=== PATIENT | male | born 1990 | race Caucasian/White ===

== ENCOUNTER 2019-12-27 16:06 | Emergency (ER) | payer MEDICAID, SELFPAY ==
[2019-12-27] VITALS (7 sets, daily range): BP systolic 100–120; BP diastolic 55–75; PULSE 59–82; RESP 16–18; TEMP 36.9; O2SAT 98–100; BMI 18.6
--- NOTE | 2019-12-27 18:07 | ED.DIZZY ---
HPI - Dizziness General Chief Complaint: Dizziness <Bettina Yu NP - Last Filed: 12/27/19 21:45> Stated Complaint: DIZZINESS DUE TO NEW MED <Bettina Yu NP - Last Filed: 12/27/19 21:45> Time Seen by Provider: 12/27/19 18:01 <Bettina Yu NP - Last Filed: 12/27/19 21:45> Source: patient <Bettina Yu NP - Last Filed: 12/27/19 21:45> Mode of arrival: ambulatory <Bettina Yu NP - Last Filed: 12/27/19 21:45> History of Present Illness HPI Narrative: patient presents with 1 day of dizziness after taking medications that were prescribed to him last night. <Bettina Yu NP - Last Filed: 12/27/19 21:45> MD elicited complaint: dizziness and lightheadedness <Bettina Yu NP - Last Filed: 12/27/19 21:45> Onset (ago): day(s) ( One day) <Bettina Yu NP - Last Filed: 12/27/19 21:45> Timing: gradual onset <Bettina Yu NP - Last Filed: 12/27/19 21:45> Severity: moderate <Bettina Yu NP - Last Filed: 12/27/19 21:45> Description: room spinning , lightheadedness and off-balance <Bettina Yu NP - Last Filed: 12/27/19 21:45> Context: change in medication <Bettina Yu NP - Last Filed: 12/27/19 21:45> History of similar symptoms: No <Bettina Yu NP - Last Filed: 12/27/19 21:45> Exacerbating factors: movement/ambulation <Bettina Yu NP - Last Filed: 12/27/19 21:45> Relieving factors: nothing <Bettina Yu NP - Last Filed: 12/27/19 21:45> Associated symptoms: nausea <Bettina Yu NP - Last Filed: 12/27/19 21:45> Related Data Allergies/Adverse Reactions: Allergies Allergy/AdvReac Type Severity Reaction Status Date / Time FRUIT Allergy Unknown HIVES, Uncoded 12/25/19 16:24 DIFFICULTY BREATHING <Bettina Yu NP - Last Filed: 12/27/19 21:45> Review of Systems Review of Systems: Yes all other systems are reviewed and are negative <Bettina Yu NP - Last Filed: 12/27/19 21:45> Constitutional: Constitutional: Reports no additional constitutional complaints and Denies headache(s) <Bettina Yu NP - Last Filed: 12/27/19 21:45> Eyes: Eyes: Reports no additional eye complaints <Bettina Yu NP - Last Filed: 12/27/19 21:45> ENT: Reports system reviewed and no additional complaints, except as documented, Reports Normal hearing present and Denies headache(s) <Bettina Yu NP - Last Filed: 12/27/19 21:45> Cardiovascular: Cardiovascular: Reports no additional cardiovascular complaints, Denies chest pain, Denies chest pain at rest, Denies diaphoresis, Denies syncope, Denies rapid heart rate, Denies dyspnea and Denies dyspnea on exertion <Bettina Yu NP - Last Filed: 12/27/19 21:45> Respiratory: Respiratory: Reports no additional respiratory complaints, Denies cough, Denies dyspnea, Denies dyspnea on exertion and Denies wheezing <Bettina Yu NP - Last Filed: 12/27/19 21:45> Gastrointestinal: Gastrointestinal: Reports no additional gastrointestinal complaints, Denies abdominal pain, Denies melena and Denies change in bowel habits <Bettina Yu NP - Last Filed: 12/27/19 21:45> Genitourinary: Genitourinary: Reports no additional male genitourinary complaints <Bettina Yu NP - Last Filed: 12/27/19 21:45> Musculoskeletal: Musculoskeletal: Reports no additional musculoskeletal complaints and Denies abnormal gait <Bettina Yu NP - Last Filed: 12/27/19 21:45> Integumentary/Breasts: Skin/Breast: Reports system reviewed and no additional complaints, except as docu <Bettina Yu NP - Last Filed: 12/27/19 21:45> Neurologic: Reports Normal hearing present, Denies Neuro-related abnormal movements, Denies Abnormal speech present, Denies abnormal gait, Denies behavioral changes, Denies syncope, Denies headache(s), Denies lack of coordination and Denies Other visual disturbances <Bettina Yu NP - Last Filed: 12/27/19 21:45> Psychiatric: Psychiatric: Reports no additional psychiatric complaints and Denies behavioral changes <Bettina Yu NP - Last Filed: 12/27/19 21:45> Endocrine: Endocrine: Reports no additional endocrine complaints <Bettina Yu NP - Last Filed: 12/27/19 21:45> Hematologic/Lymphatic: Hematologic/Lymphatic: Denies easy bleeding and Denies easy bruising <Bettina Yu NP - Last Filed: 12/27/19 21:45> Allergic/Immunologic: Allergic/Immunologic: Denies wheezing <Bettina Yu NP - Last Filed: 12/27/19 21:45> [facility] Past Medical History Attestation statement: The following information was validated with the patient. <Bettina Yu NP - Last Filed: 12/27/19 21:45> Medical History: Medical History Anxiety <Bettina Yu NP - Last Filed: 12/27/19 21:45> Social History Social History: Social History Alcohol intake: never Smoking Status: Former smoker Smoked in Last 30 Days: No Use of substances other than those prescribed or required for medical reasons: No Advance Directives: No Advance Directives Information Provided: Yes <Bettina Yu NP - Last Filed: 12/27/19 21:45> Physical Exam Vital Signs and I&O and Narrative: Vital Signs and I&O: Vital Signs Temp 98.5 F 12/27/19 16:33 Pulse 75 12/27/19 20:42 Resp 18 12/27/19 20:42 BP 100/55 L 12/27/19 20:42 Pulse Ox 99 12/27/19 20:42 Intake & Output 12/27/19 12/27/19 12/28/19 06:59 18:59 06:59 Intake Total 1000 / 1000 Balance 1000 / 1000 Weight 55.776 kg Intake: Intake, IV Amoun t 1000 / 1000 0.9 % Sodium C hloride 1,000 ml 1000 / 1000 @ 999 mls/hr I VCONT .Q1H1M [facility] Rx#:[id number] Body Mass Index 18.6 <Bettina Yu TIME ANALYSIS CLERK - Last Filed: 12/27/19 21:45> Vital Signs and I&O: Vital Signs Temp 98.5 F 12/27/19 16:33 Pulse 75 12/27/19 20:42 Resp 18 12/27/19 20:42 BP 100/55 L 12/27/19 20:42 Pulse Ox 99 12/27/19 20:42 Intake & Output 12/27/19 12/27/19 12/28/19 06:59 18:59 06:59 Intake Total 1000 / 1000 Balance 1000 / 1000 Weight 55.776 kg Intake: Intake, IV Amoun t 1000 / 1000 0.9 % Sodium C hloride 1,000 ml 1000 / 1000 @ 999 mls/hr I VCONT .Q1H1M [facility] Rx#:[id number] Body Mass Index 18.6 <Ulisses Quinonez DO - Last Filed: 12/28/19 02:06> Const: General: cooperative, healthy appearing and no acute distress <Bettina Yu TIME ANALYSIS CLERK - Last Filed: 12/27/19 21:45> Nutritional Appearance: thin <Bettina Yu TIME ANALYSIS CLERK - Last Filed: 12/27/19 21:45> Orientation/consciousness: patient oriented x3 <Bettina Yu TIME ANALYSIS CLERK - Last Filed: 12/27/19 21:45> Limitations: no limitations <Bettina Yu TIME ANALYSIS CLERK - Last Filed: 12/27/19 21:45> HENMT: Head: Yes normal to inspection and Yes normocephalic <Bettina Yu TIME ANALYSIS CLERK - Last Filed: 12/27/19 21:45> Ears: hearing grossly normal bilaterally and TM's normal bilaterally <Bettina Yu TIME ANALYSIS CLERK - Last Filed: 12/27/19 21:45> General nose exam: Normal external nose present <Bettina Yu TIME ANALYSIS CLERK - Last Filed: 12/27/19 21:45> Face and sinus: Yes normal facial exam <Bettina Yu TIME ANALYSIS CLERK - Last Filed: 12/27/19 21:45> Mouth: Normal oral and palatal mucosa present <Bettina Yu TIME ANALYSIS CLERK - Last Filed: 12/27/19 21:45> Eyes: General: appearance normal, both eyes and all related structures <Bettina Yu TIME ANALYSIS CLERK - Last Filed: 12/27/19 21:45> Pupils: Equal, round and reactive pupils present <Bettina Yu TIME ANALYSIS CLERK - Last Filed: 12/27/19 21:45> EOM: EOMs intact bilaterally <Bettina Yu TIME ANALYSIS CLERK - Last Filed: 12/27/19 21:45> Neck: Neck: Yes normal visual inspection <Bettina Yu TIME ANALYSIS CLERK - Last Filed: 12/27/19 21:45> Chest: Chest palpation & inspection: normal inspection of the chest and normal palpation of entire chest wall <Bettina Yu TIME ANALYSIS CLERK - Last Filed: 12/27/19 21:45> Resp: Effort & Inspection: normal respiratory effort <Bettina Yu TIME ANALYSIS CLERK - Last Filed: 12/27/19 21:45> Auscultation: clear to auscultation bilaterally <Bettina Yu TIME ANALYSIS CLERK - Last Filed: 12/27/19 21:45> Cardio: Rate: regular rate <Bettina Yu NP - Last Filed: 12/27/19 21:45> Rhythm: regular rhythm <Bettina Yu TIME ANALYSIS CLERK - Last Filed: 12/27/19 21:45> GI: Inspection: Yes normal to inspection <Bettina Yu TIME ANALYSIS CLERK - Last Filed: 12/27/19 21:45> Auscultation: normal bowel sounds <Bettina Yu TIME ANALYSIS CLERK - Last Filed: 12/27/19 21:45> Skin: General skin exam: no rashes or lesions noted <Bettina Yu TIME ANALYSIS CLERK - Last Filed: 12/27/19 21:45> Neuro: General: patient oriented x3 <Bettina Yu NP - Last Filed: 12/27/19 21:45> Cranial nerves: Yes CN's II-XII intact bilaterally, Yes Facial sensation intact/muscles of mastication intact, Yes Equal, round and reactive pupils present, Yes Bilaterally intact EOM present, Yes Nystagmus not present and Yes Normal hearing present <Bettina Yu NP - Last Filed: 12/27/19 21:45> Cognition (Neuro): normal cognition <Bettina Yu NP - Last Filed: 12/27/19 21:45> Speech: No Abnormal speech present <Bettina Yu NP - Last Filed: 12/27/19 21:45> Gait exam (Neuro): Normal gait present <Bettina Yu NP - Last Filed: 12/27/19 21:45> Motor exam (neuro): 5/5 motor strength present throughout <Bettina Yu NP - Last Filed: 12/27/19 21:45> Extrem: General: Yes normal to inspection <Bettina Yu NP - Last Filed: 12/27/19 21:45> Psych: Appearance: grossly normal <Bettina Yu NP - Last Filed: 12/27/19 21:45> Mental Status: mental status grossly normal <Bettina Yu NP - Last Filed: 12/27/19 21:45> Speech and movement: Normal speech and movement present <Bettina Yu NP - Last Filed: 12/27/19 21:45> Course Course Hospital Course: 29-year-old male presents with after taking medications prescribed to him on December 24. Was prescribed Flexeril 10 mg, Montezuma 5 mg/325 mg for a work related injury. He stated he took these medications last night before going to bed and woke up with significant dizziness. He does describe any other symptoms at this time. Plan of care is for CBC, Chem 7, urinalysis, and fluid resuscitation. Orthostatic vitals. <Bettina Yu NP - Last Filed: 12/27/19 21:45> Reevaluation(s) Reevaluation #1: Orthostatics are positive, will order 2nd L of normal saline. <Bettina Yu NP - Last Filed: 12/27/19 21:45> Time: 20:08 <Bettina Yu NP - Last Filed: 12/27/19 21:45> Reevaluation #2: Second L infusing. Patient states to feel much better, sitting in bed, playing on his phone. <Bettina Yu NP - Last Filed: 12/27/19 21:45> Reevaluation #3: patient states to feel well, patient was advised not to take medications that he took earlier due to the adverse reaction. He does understand that narcotics and cause dizziness and drowsiness When mixed with muscle relaxers. He did verbalize understanding. He will follow-up with primary care physician as needed. patient verbalized understanding of and agrees to plan of care to discharge home. <Bettina Yu NP - Last Filed: 12/27/19 21:45> MDM - Dizziness Medical Records Attestation: I reviewed the patient's medical records. <Bettina Yu NP - Last Filed: 12/27/19 21:45> Lab Data Attestation: I reviewed the patient's lab results. <Bettina Yu NP - Last Filed: 12/27/19 21:45> Result diagrams: : 12/27/19 19:11 12/27/19 19:11 <Bettina Yu NP - Last Filed: 12/27/19 21:45> Labs: Lab Results 12/27/19 12/27/19 12/27/19 Range/Units 19:11 19:11 19:11 WBC 8.9 (4.8-10.8) X10*3/uL RBC 4.42 L (4.60-5.80) X10*6/uL Hgb 13.7 L (14.0-18.0) g/dl Hct 40.9 L (42-52) % MCV 92.5 (80-98) fL MCH 31.0 (27.0-33.0) pg MCHC 33.5 (31.0-36.0) g/dl RDW 11.2 (11.0-16.0) % Plt Count 214 (160-400) X10*3/uL MPV 9.7 (9.4-12.4) fL Immature Gran % (Auto) 0.2 (0.0-0.4) % Neut % (Auto) 79.1 H (45-73) % Lymph % (Auto) 16.0 L (20-40) % Bowie % (Auto) 4.3 (2-11) % Eos % (Auto) 0.1 (0-4) % Baso % (Auto) 0.3 (0-2) % Neut # (Auto) 7.0 (2.0-8.3) X10*3/uL Lymph # (Auto) 1.4 (1.2-4.9) X10*3/uL Bowie # (Auto) 0.4 (0.1-1.2) X10*3/uL Eos # (Auto) 0.0 (0.0-0.4) X10*3/uL Baso # (Auto) 0.0 (0.0-0.2) X10*3/uL Abs Immat Gran (auto) 0.02 (0.00-0.03) X10*3/uL Absolute Nucleated RBC 0.000 (0.0-0.012) X10*3/uL Nucleated RBC % (auto) 0.0 (0.0-0.2) /100WBC Sodium 141 (135-145) mmol/L Potassium 3.8 (3.3-5.1) mmol/l Chloride 102 (96-108) mmol/L Carbon Dioxide 30 H (22-29) mmol/L Anion Gap 13 (12-20) BUN 11 (9-16) mg/dL Creatinine 0.95 (0.5-1.4) mg/dL Estim Creat Clear Calc 89.6 Estimated GFR > 60 Random Glucose 95 (60-115) mg/dL Calcium 9.5 (8.4-10.2) mg/dL Urine Color YELLOW Urine Appearance CLEAR Urine pH 6.5 (5.0-8.0) Ur Specific [place] 1.010 (1.005-1.025) Urine Protein NEG (NEG-TRACE) MG/DL Urine Glucose (UA) NEG (NEG) MG/DL Urine Ketones NEG (NEG) MG/DL Urine Blood NEG (NEG) Urine Nitrite NEG (NEG) Ur Leukocyte Esterase NEG (NEG) Urine Opiates Screen (Not Detect) Ur Barbiturates Screen (Not Detect) Ur Phencyclidine Scrn (Not Detect) Ur Amphetamines Screen (Not Detect) U Benzodiazepines Scrn (Not Detect) Urine Cocaine Screen (Not Detect) U Marijuana (THC) Screen (Not Detect) 12/27/19 Range/Units 19:11 WBC (4.8-10.8) X10*3/uL RBC (4.60-5.80) X10*6/uL Hgb (14.0-18.0) g/dl Hct (42-52) % MCV (80-98) fL MCH (27.0-33.0) pg MCHC (31.0-36.0) g/dl RDW (11.0-16.0) % Plt Count (160-400) X10*3/uL MPV (9.4-12.4) fL Immature Gran % (Auto) (0.0-0.4) % Neut % (Auto) (45-73) % Lymph % (Auto) (20-40) % Bowie % (Auto) (2-11) % Eos % (Auto) (0-4) % Baso % (Auto) (0-2) % Neut # (Auto) (2.0-8.3) X10*3/uL Lymph # (Auto) (1.2-4.9) X10*3/uL Bowie # (Auto) (0.1-1.2) X10*3/uL Eos # (Auto) (0.0-0.4) X10*3/uL Baso # (Auto) (0.0-0.2) X10*3/uL Abs Immat Gran (auto) (0.00-0.03) X10*3/uL Absolute Nucleated RBC (0.0-0.012) X10*3/uL Nucleated RBC % (auto) (0.0-0.2) /100WBC Sodium (135-145) mmol/L Potassium (3.3-5.1) mmol/l Chloride (96-108) mmol/L Carbon Dioxide (22-29) mmol/L Anion Gap (12-20) BUN (9-16) mg/dL Creatinine (0.5-1.4) mg/dL Estim Creat Clear Calc Estimated GFR Random Glucose (60-115) mg/dL Calcium (8.4-10.2) mg/dL Urine Color Urine Appearance Urine pH (5.0-8.0) Ur Specific [place] (1.005-1.025) Urine Protein (NEG-TRACE) MG/DL Urine Glucose (UA) (NEG) MG/DL Urine Ketones (NEG) MG/DL Urine Blood (NEG) Urine Nitrite (NEG) Ur Leukocyte Esterase (NEG) Urine Opiates Screen Not Detected (Not Detect) Ur Barbiturates Screen Not Detected (Not Detect) Ur Phencyclidine Scrn Not Detected (Not Detect) Ur Amphetamines Screen Not Detected (Not Detect) U Benzodiazepines Scrn Not Detected (Not Detect) Urine Cocaine Screen Not Detected (Not Detect) U Marijuana (THC) Screen Not Detected (Not Detect) <Bettina Yu NP - Last Filed: 12/27/19 21:45> Lab Results 12/27/19 12/27/19 12/27/19 Range/Units 19:11 19:11 19:11 WBC 8.9 (4.8-10.8) X10*3/uL RBC 4.42 L (4.60-5.80) X10*6/uL Hgb 13.7 L (14.0-18.0) g/dl Hct 40.9 L (42-52) % MCV 92.5 (80-98) fL MCH 31.0 (27.0-33.0) pg MCHC 33.5 (31.0-36.0) g/dl RDW 11.2 (11.0-16.0) % Plt Count 214 (160-400) X10*3/uL MPV 9.7 (9.4-12.4) fL Immature Gran % (Auto) 0.2 (0.0-0.4) % Neut % (Auto) 79.1 H (45-73) % Lymph % (Auto) 16.0 L (20-40) % Bowie % (Auto) 4.3 (2-11) % Eos % (Auto) 0.1 (0-4) % Baso % (Auto) 0.3 (0-2) % Neut # (Auto) 7.0 (2.0-8.3) X10*3/uL Lymph # (Auto) 1.4 (1.2-4.9) X10*3/uL [place]ie # (Auto) 0.4 (0.1-1.2) X10*3/uL Eos # (Auto) 0.0 (0.0-0.4) X10*3/uL Baso # (Auto) 0.0 (0.0-0.2) X10*3/uL Abs Immat Gran (auto) 0.02 (0.00-0.03) X10*3/uL Absolute Nucleated RBC 0.000 (0.0-0.012) X10*3/uL Nucleated RBC % (auto) 0.0 (0.0-0.2) /100WBC Sodium 141 (135-145) mmol/L Potassium 3.8 (3.3-5.1) mmol/l Chloride 102 (96-108) mmol/L Carbon Dioxide 30 H (22-29) mmol/L Anion Gap 13 (12-20) BUN 11 (9-16) mg/dL Creatinine 0.95 (0.5-1.4) mg/dL Estim Creat Clear Calc 89.6 Estimated GFR > 60 Random Glucose 95 (60-115) mg/dL Calcium 9.5 (8.4-10.2) mg/dL Urine Color YELLOW Urine Appearance CLEAR Urine pH 6.5 (5.0-8.0) Ur Specific [place] 1.010 (1.005-1.025) Urine Protein NEG (NEG-TRACE) MG/DL Urine Glucose (UA) NEG (NEG) MG/DL Urine Ketones NEG (NEG) MG/DL Urine Blood NEG (NEG) Urine Nitrite NEG (NEG) Ur Leukocyte Esterase NEG (NEG) Urine Opiates Screen (Not Detect) Ur Barbiturates Screen (Not Detect) Ur Phencyclidine Scrn (Not Detect) Ur Amphetamines Screen (Not Detect) U Benzodiazepines Scrn (Not Detect) Urine Cocaine Screen (Not Detect) U Marijuana (THC) Screen (Not Detect) 12/27/19 Range/Units 19:11 WBC (4.8-10.8) X10*3/uL RBC (4.60-5.80) X10*6/uL Hgb (14.0-18.0) g/dl Hct (42-52) % MCV (80-98) fL MCH (27.0-33.0) pg MCHC (31.0-36.0) g/dl RDW (11.0-16.0) % Plt Count (160-400) X10*3/uL MPV (9.4-12.4) fL Immature Gran % (Auto) (0.0-0.4) % Neut % (Auto) (45-73) % Lymph % (Auto) (20-40) % [place] % (Auto) (2-11) % Eos % (Auto) (0-4) % Baso % (Auto) (0-2) % Neut # (Auto) (2.0-8.3) X10*3/uL Lymph # (Auto) (1.2-4.9) X10*3/uL [place]ie # (Auto) (0.1-1.2) X10*3/uL Eos # (Auto) (0.0-0.4) X10*3/uL Baso # (Auto) (0.0-0.2) X10*3/uL Abs Immat Gran (auto) (0.00-0.03) X10*3/uL Absolute Nucleated RBC (0.0-0.012) X10*3/uL Nucleated RBC % (auto) (0.0-0.2) /100WBC Sodium (135-145) mmol/L Potassium (3.3-5.1) mmol/l Chloride (96-108) mmol/L Carbon Dioxide (22-29) mmol/L Anion Gap (12-20) BUN (9-16) mg/dL Creatinine (0.5-1.4) mg/dL Estim Creat Clear Calc Estimated GFR Random Glucose (60-115) mg/dL Calcium (8.4-10.2) mg/dL Urine Color Urine Appearance Urine pH (5.0-8.0) Ur Specific [place] (1.005-1.025) Urine Protein (NEG-TRACE) MG/DL Urine Glucose (UA) (NEG) MG/DL Urine Ketones (NEG) MG/DL Urine Blood (NEG) Urine Nitrite (NEG) Ur Leukocyte Esterase (NEG) Urine Opiates Screen Not Detected (Not Detect) Ur Barbiturates Screen Not Detected (Not Detect) Ur Phencyclidine Scrn Not Detected (Not Detect) Ur Amphetamines Screen Not Detected (Not Detect) U Benzodiazepines Scrn Not Detected (Not Detect) Urine Cocaine Screen Not Detected (Not Detect) U Marijuana (THC) Screen Not Detected (Not Detect) <Ulisses Quinonez DO - Last Filed: 12/28/19 02:06> Discharge Plan Discharge Clinical Impression: Orthostatic hypotension, Adverse reaction to drug <Bettina Yu NP - Last Filed: 12/27/19 21:45> Patient Disposition: Home, Self-Care <Bettina Yu NP - Last Filed: 12/27/19 21:45> Instructions: Hypotension (ED), Adverse Drug Reaction (ED) <Bettina Yu NP - Last Filed: 12/27/19 21:45> Additional Instructions: please stop taking the medications that were prescribed to you as they are causing an adverse reaction. Please drink plenty of fluids. Follow-up with primary care provider in 3-5 days. Return to the emergency department for any new, concerning, or worsening symptoms. <Bettina Yu NP - Last Filed: 12/27/19 21:45> Interventions: ED Discharge Assessment Last Done: 12/27/19 21:21 <Bettina Yu NP - Last Filed: 12/27/19 21:45> Discharge Date/Time: 12/27/19 21:30 <Bettina Yu NP - Last Filed: 12/27/19 21:45>
[2019-12-27 19:16] LABS: MANUAL DIFF FLAG NO
[2019-12-27] MEDS: 0.9 % Sodium Chloride 1,000 ML 999 ML IVCONT ×2 (19:16→20:42)
[2019-12-27 19:19] LABS: Basophils Percent Auto 0.3 % (0-2); Eosinophils Percent Auto 0.1 % (0-4); Hematocrit 40.9 % (42-52); Hemoglobin 13.7 g/dl (14.0-18.0); Imm Gran Abs Auto 0.02 X10*3/uL (0.00-0.03); Imm Gran Pct Auto 0.2 % (0.0-0.4); Lymphocytes Absolute Auto 1.4 X10*3/uL (1.2-4.9); Mean Corpuscular HGB Conc 33.5 g/dl (31.0-36.0); Mean Corpuscular Volume 92.5 fL (80-98); Mean Platelet Volume 9.7 fL (9.4-12.4); Monocytes Absolute Auto 0.4 X10*3/uL (0.1-1.2); Monocytes Percent Auto 4.3 % (2-11); Neutrophils Percent Auto 79.1 % (45-73); Platelet Count 214 X10*3/uL (160-400); Red Blood Count 4.42 X10*6/uL (4.60-5.80); Red Cell Distribution Width 11.2 % (11.0-16.0); White Blood Count 8.9 X10*3/uL (4.8-10.8)
[2019-12-27 19:21] LABS: Glucose Urine UA NEG (NEG); Leukocyte Esterase Urine NEG (NEG); Nitrite Urine NEG (NEG); PH 6.5 (5.0-8.0); Urine Blood NEG (NEG); Urine Ketones NEG (NEG); Urine Protein NEG (NEG-TRACE)
[2019-12-27 19:22] LABS: Appearance Urine CLEAR; Color Urine YELLOW
[2019-12-27 19:42] LABS: Anion Gap 13 (12-20); Blood Urea Nitrogen 11 mg/dL (9-16); Calcium 9.5 mg/dL (8.4-10.2); Carbon Dioxide 30 mmol/L (22-29); Chloride 102 mmol/L (96-108); Creatinine Clr Calc Pharmacy 89.6; Estimated Glomerular Filt Rate > 60; Glucose Random 95 mg/dL (60-115); Potassium 3.8 mmol/l (3.3-5.1); Sodium 141 mmol/L (135-145)
[2019-12-27 19:52] LABS: Amphetamine Screen Urine Not Detected (Not Detect); Barbiturates, Urine Not Detected (Not Detect); Cannabinoid Screen Urine Not Detected (Not Detect); Cocaine Screen Urine Not Detected (Not Detect); Opiate Screen Urine Not Detected (Not Detect); Phencyclidine Screen Urine Not Detected (Not Detect)
[2019-12-27 20:01] LABS: Benzodiazepines Screen Urine Not Detected (Not Detect)
== END 2019-12-27 21:30 | disposition home or self-care (01) ==
PROVIDERS: Nurse Practitioner Family; Emergency Provider Emergency Medicine; PCP Student in an Organized Health Care Education/Training Program
DX: I95.2 Hypotension due to drugs (principal); T48.1X5A Adverse effect of skeletal muscle relaxants [neuromuscular blocking agents], initial encounter; Y92.019 Unspecified place in single-family (private) house as the place of occurrence of the external cause
CPT/HCPCS: 36415; 80048; 80307; 81003; 85025; 96360; 96361; 99284

== ENCOUNTER 2020-03-02 17:52 | Emergency (ER) | payer MEDICAID, SELFPAY ==
--- NOTE | 2020-03-02 08:37 | ECG_ITS ---
Test Reason : UNK Blood Pressure : / mmHG Vent. Rate : 063 BPM Atrial Rate : 063 BPM P-R Int : 116 ms QRS Dur : 082 ms QT Int : 360 ms P-R-T Axes : -07 070 067 degrees QTc Int : 368 ms Normal sinus rhythm Normal ECG When compared with ECG of 13-MAY-2019 17:40, Premature ventricular complexes are no longer Present Referred By: Freddie Anders Electronically Signed By:RAFI RUSSELL
[2020-03-02 18:00] VITALS: BP 116/71; PULSE 78; RESP 16; TEMP 36.7; O2SAT 98; BMI 18.4
[2020-03-02 20:32] VITALS: BP 99/61; PULSE 58; RESP 18; TEMP 36.7; O2SAT 97
--- NOTE | 2020-03-02 20:42 | ED.ABDPAIN ---
HPI - Abdominal Pain General Chief Complaint: Abdominal Pain Stated Complaint: Acid reflux Time Seen by Provider: 03/02/20 21:43 Source: patient Mode of arrival: ambulatory Limitations: no limitations History of Present Illness HPI narrative: 29-year-old male with history of GERD presents with esophageal burning consistent with prior episodes of GERD. He states that he presents because pain has not stopped after taking omeprazole. Usually his heartburn stops within an hour taking his medications. He does not report any other symptoms. MD elicited complaint: abdominal pain Pertinent past history: other (gerd) Onset (ago): hour(s) (3) Pain Consistency: constant Location: epigastric Severity: mild Quality: burning Radiation: none Migration to: no migration Exacerbating factors: eating Relieving factors: nothing Associated symptoms: denies other symptoms Treatments prior to arrival: antacids Related Data Allergies Allergy/AdvReac Type Severity Reaction Status Date / Time FRUIT Allergy Unknown HIVES, Uncoded 12/25/19 16:24 DIFFICULTY BREATHING Review of Systems Review of Systems Constitutional: No Fever, No Chills ENT/Mouth: No Ear Pain, No Hoarseness, No sore throat Eyes: No Eye Pain, No Swelling, No Redness, No Foreign Body Cardiovascular: No Chest Pain, No SOB Respiratory: No Cough, No Dyspnea Gastrointestinal: Positive heartburn, No Nausea, No Vomiting, No Diarrhea, No abdominal Pain Genitourinary: No Dysuria, No Hematuria Musculoskeletal: no joint pain, No Myalgias, No Joint Swelling Skin: No Skin lacerations, No rash Neuro: No Weakness, No Numbness, No Paresthesias, No Loss of Consciousness, No Dizziness, No Headache Psych: No Anxiety/Panic, No Depression Heme/Lymph: no easy bruising, no Lymphadenopathy Endocrine: No Polyuria, No Polydipsia Yes all other systems are reviewed and are negative Physical Exam Vital Signs: Vital Signs: Last Vital Signs Temp 98.0 F 03/02/20 20:32 Pulse 58 03/02/20 20:32 Resp 18 03/02/20 20:32 BP 99/61 03/02/20 20:32 Pulse Ox 97 03/02/20 20:32 Body Mass Index 18.4 Appearance: Alert. Oriented X3. No acute distress. thin body habitus Eyes: Pupils equal, round and reactive to light. ENT: Pharynx normal. Neck: Normal inspection. Neck supple. CVS: Normal heart rate and rhythm. Pulses normal. Respiratory: No respiratory distress. Breath sounds normal. Abdomen: Soft and nontender. Skin: Skin warm and dry. Normal skin color. Normal skin turgor. Extremities: No lower extremity edema. Neuro: No motor deficit. No sensory deficit. Course Course Course Narrative: 29-year-old male with GERD presents with heartburn-like symptoms after taking his medications. He is very thin, states that he eats all the time, he is always hungry and always thirsty. Will order chest x-ray and labs. we will resuscitate with a L of fluid As he does look dry. Chest x-rays negative for acute findings requiring emergent intervention, lab values show an elevated glucose of 160. based on his description of symptoms I feel that this could possibly be a type 1 diabetes. Detailed instructions about diabetes, glucose monitoring, and need to follow-up with primary care in the next 2-3 days. This [employer] MANAGER and RN spent 35 minutes each speaking to the patient regarding diabetes and need for further follow-up. Glucometer called in to his pharmacy of choice. Patient verbalized understanding of and agrees to plan of care to discharge home. MDM - Abdominal Pain MDM Narrative Medical decision making narrative: GERD Differential Diagnosis Differential diagnosis: Likely gastritis and peptic ulcer disease Lab Data Attestation: I reviewed the patient's lab results. Result diagrams: 03/02/20 20:38 03/02/20 20:38 Labs: Lab Results 03/02/20 03/02/20 12 Range/Units 20:38 20:38 20:38 WBC 5.6 (4.8-10.8) X10*3/uL RBC 4.18 L (4.60-5.80) X10*6/uL Hgb 12.7 L (14.0-18.0) g/dl Hct 38.3 L (42-52) % MCV 91.6 (80-98) fL MCH 30.4 (27.0-33.0) pg MCHC 33.2 (31.0-36.0) g/dl RDW 11.5 (11.0-16.0) % Plt Count 206 (160-400) X10*3/uL MPV 9.8 (9.4-12.4) fL Immature Gran % (Auto) 0.4 (0.0-0.4) % Neut % (Auto) 54.2 (45-73) % Lymph % (Auto) 35.9 (20-40) % [place] % (Auto) 7.9 (2-11) % Eos % (Auto) 1.1 (0-4) % Baso % (Auto) 0.5 (0-2) % Lymph # (Auto) 2.0 (1.2-4.9) X10*3/uL [place] # (Auto) 0.4 (0.1-1.2) X10*3/uL Eos # (Auto) 0.1 (0.0-0.4) X10*3/uL Baso # (Auto) 0.0 (0.0-0.2) X10*3/uL Abs Immat Gran (auto) 0.02 (0.00-0.03) X10*3/uL Absolute Neuts (auto) 3.0 (2.0-8.3) X10*3/uL Absolute Nucleated RBC 0.000 (0.0-0.012) X10*3/uL Nucleated RBC % (auto) 0.0 (0.0-0.2) /100WBC Hold Purple Top Hold Blue Top SEE NOTE Sodium 137 (135-145) mmol/L Potassium 3.5 (3.3-5.1) mmol/l Chloride 100 (96-108) mmol/L Carbon Dioxide 28 (22-29) mmol/L Anion Gap 13 (12-20) BUN 12 (9-16) mg/dL Creatinine 0.82 (0.5-1.4) mg/dL Estim Creat Clear Calc 105.6 Estimated GFR > 60 Random Glucose 160 H D (60-115) mg/dL Calcium 9.1 (8.4-10.2) mg/dL Total Bilirubin 0.5 (0.0-1.0) mg/dL AST 18 (5-37) U/L ALT 10 (0-40) U/L Alkaline Phosphatase 62 (39-117) U/L Total Protein 7.5 (6.5-8.0) g/dL Albumin 4.8 (3.5-5.0) g/dL Lipase 30 (8-78) U/L 03/02/20 Range/Units 20:38 WBC (4.8-10.8) X10*3/uL RBC (4.60-5.80) X10*6/uL Hgb (14.0-18.0) g/dl Hct (42-52) % MCV (80-98) fL MCH (27.0-33.0) pg MCHC (31.0-36.0) g/dl RDW (11.0-16.0) % Plt Count (160-400) X10*3/uL MPV (9.4-12.4) fL Immature Gran % (Auto) (0.0-0.4) % Neut % (Auto) (45-73) % Lymph % (Auto) (20-40) % [place] % (Auto) (2-11) % Eos % (Auto) (0-4) % Baso % (Auto) (0-2) % Lymph # (Auto) (1.2-4.9) X10*3/uL [place] # (Auto) (0.1-1.2) X10*3/uL Eos # (Auto) (0.0-0.4) X10*3/uL Baso # (Auto) (0.0-0.2) X10*3/uL Abs Immat Gran (auto) (0.00-0.03) X10*3/uL Absolute Neuts (auto) (2.0-8.3) X10*3/uL Absolute Nucleated RBC (0.0-0.012) X10*3/uL Nucleated RBC % (auto) (0.0-0.2) /100WBC Hold Purple Top SEE NOTE Hold Blue Top Sodium (135-145) mmol/L Potassium (3.3-5.1) mmol/l Chloride (96-108) mmol/L Carbon Dioxide (22-29) mmol/L Anion Gap (12-20) BUN (9-16) mg/dL Creatinine (0.5-1.4) mg/dL Estim Creat Clear Calc Estimated GFR Random Glucose (60-115) mg/dL Calcium (8.4-10.2) mg/dL Total Bilirubin (0.0-1.0) mg/dL AST (5-37) U/L ALT (0-40) U/L Alkaline Phosphatase (39-117) U/L Total Protein (6.5-8.0) g/dL Albumin (3.5-5.0) g/dL Lipase (8-78) U/L Imaging Data Chest x-ray: Attestation: I personally reviewed and interpreted this imaging study as follows: Radiologist's impression: EXAMINATION: XR CHEST CLINICAL INFORMATION: GI pain COMPARISON: 05/13/2019 TECHNIQUE: 2 views of the chest were obtained. FINDINGS: No significant abnormality is noted involving the heart, lungs, mediastinum, bony thorax or soft tissues. Minimal pectus excavatum is noted. XR/XR chest 2V IMPRESSION: Unremarkable examination. Discharge Plan Discharge Clinical Impression: Diabetes Qualifiers: Diabetes mellitus type: type 1 Diabetes mellitus complication status: without complication Qualified Code(s): E10.9 - Type 1 diabetes mellitus without complications Patient Disposition: Home, Self-Care Instructions: Diabetes Insipidus (ED), Type 1 Diabetes in Adults: New Diagnosis (ED), Diabetes and Your Skin (ED), Diabetes and Your Mouth (ED), Diabetes and Nutrition (ED), Diabetes and Exercise (ED), Diabetes Type 1: Management (ED) Additional Instructions: you were evaluated for epigastric pain suspected to be Heartburn. Your glucose was 160, you describe symptoms consistent with diabetes type 1. We ordered a glucometer for you. Please pick it up at the pharmacy today. Monitor blood sugars daily. You must follow-up with the primary care physician in the next 2-3 days as you need careful monitoring for this diagnosis. Thank you for choosing this emergency department for evaluation. Please follow-up with primary care physician as needed. Return to the emergency department for any new, concerning, or worsening symptoms. Stand Alone Forms: Work/School Release Interventions: ED Discharge Assessment Last Done: 03/02/20 22:42 Discharge Date/Time: 03/02/20 22:58 Print Language: [place]ican [facility] Past Medical History Medical History Anxiety Social History Social History Alcohol intake: current Alcohol intake frequency: holidays/special occasions only Smoking Status: Current every day smoker Smoked in Last 30 Days: Yes Use of substances other than those prescribed or required for medical reasons: No Advance Directives: No Advance Directives Information Provided: Yes
[2020-03-02 20:45] LABS: MANUAL DIFF FLAG NO
[2020-03-02 20:49] LABS: Basophils Percent Auto 0.5 % (0-2); Eosinophils Absolute Auto 0.1 X10*3/uL (0.0-0.4); Eosinophils Percent Auto 1.1 % (0-4); Hematocrit 38.3 % (42-52); Hemoglobin 12.7 g/dl (14.0-18.0); Imm Gran Abs Auto 0.02 X10*3/uL (0.00-0.03); Imm Gran Pct Auto 0.4 % (0.0-0.4); Lymphocytes Percent Auto 35.9 % (20-40); Mean Corpuscular HGB Conc 33.2 g/dl (31.0-36.0); Mean Corpuscular Hemoglobin 30.4 pg (27.0-33.0); Mean Corpuscular Volume 91.6 fL (80-98); Mean Platelet Volume 9.8 fL (9.4-12.4); Monocytes Absolute Auto 0.4 X10*3/uL (0.1-1.2); Monocytes Percent Auto 7.9 % (2-11); Neutrophils Percent Auto 54.2 % (45-73); Platelet Count 206 X10*3/uL (160-400); Red Blood Count 4.18 X10*6/uL (4.60-5.80); Red Cell Distribution Width 11.5 % (11.0-16.0); White Blood Count 5.6 X10*3/uL (4.8-10.8)
[2020-03-02] MEDS: Magnesium Hydrox/Alum Hydrox 30 ML ORAL.SUSP PO (21:18)
[2020-03-02] MEDS: Lidocaine HCl Viscous 2 % 15 ML SOLUTION MUCOUS MEM (21:18)
[2020-03-02] MEDS: PHENobarb/Hyoscy/Atropine/Scop 10 ML ELIXIR PO (21:19)
[2020-03-02 21:36] LABS: Alanine Aminotransferase 10 U/L (0-40); Albumin Level 4.8 g/dL (3.5-5.0); Alkaline Phosphatase 62 U/L (39-117); Anion Gap 13 (12-20); Aspartate Amino Transferase 18 U/L (5-37); Bilirubin Total 0.5 mg/dL (0.0-1.0); Blood Urea Nitrogen 12 mg/dL (9-16); Calcium 9.1 mg/dL (8.4-10.2); Carbon Dioxide 28 mmol/L (22-29); Chloride 100 mmol/L (96-108); Creatinine Clr Calc Pharmacy 105.6; Estimated Glomerular Filt Rate > 60; Glucose Random 160 mg/dL (60-115); Lipase 30 U/L (8-78); Potassium 3.5 mmol/l (3.3-5.1); Sodium 137 mmol/L (135-145); Total Protein 7.5 g/dL (6.5-8.0)
== END 2020-03-02 22:58 | disposition home or self-care (01) ==
PROVIDERS: Emergency Provider Internal Medicine; PCP Student in an Organized Health Care Education/Training Program
DX: E10.9 Type 1 diabetes mellitus without complications (principal); R10.13 Epigastric pain; K21.9 Gastro-esophageal reflux disease without esophagitis; F17.200 Nicotine dependence, unspecified, uncomplicated
CPT/HCPCS: 36415; 71046; 80053; 83690; 85025; 93005; 99284

== ENCOUNTER 2020-06-21 12:31 | Emergency (ER) | payer MEDICAID, SELFPAY ==
[2020-06-21 12:43] VITALS: BP 122/77; PULSE 82; RESP 16; TEMP 37; O2SAT 98; BMI 20.3
[2020-06-21 16:40] VITALS: BP 118/71; PULSE 64; RESP 16; TEMP 36.8; O2SAT 99
== END 2020-06-21 17:49 | disposition left against medical advice (07) ==
PROVIDERS: Emergency Provider Emergency Medicine; PCP Student in an Organized Health Care Education/Training Program
DX: R10.9 Unspecified abdominal pain (principal); F41.9 Anxiety disorder, unspecified
CPT/HCPCS: 99283

== ENCOUNTER 2020-06-25 12:01 | Outpatient (REF) | payer MEDICAID, SELFPAY ==
--- NOTE | ~2020-06-25 | XR_ITS ---
EXAMINATION: XR LUMBOSACRAL SPINE WITH OBLIQUES CLINICAL INFORMATION: Lower back pain COMPARISON: 12/25/2019 TECHNIQUE: AP, both oblique, and lateral views of the lumbar spine. Lateral view of the lumbosacral junction. FINDINGS: There is no fracture or subluxation. Vertebral body height and alignment is maintained. Disc spaces are maintained. The sacroiliac joints are symmetric. The visualized sacrum is intact. The bowel gas pattern is unremarkable. XR/XR lumbar spine 4V min IMPRESSION: Normal appearance of the lumbosacral spine.
== END 2020-06-25 12:02 | disposition home or self-care (01) ==
LOC: HO.XRAY 12:01
PROVIDERS: PCP Student in an Organized Health Care Education/Training Program; Visit Provider Emergency Medicine
DX: M54.5 Low back pain (principal)
CPT/HCPCS: 72110

== ENCOUNTER 2020-11-25 16:25 | Emergency (ER) | payer MEDICAID, SELFPAY ==
[2020-11-25 16:32] VITALS: BP 118/72; PULSE 73; RESP 16; TEMP 35.9; O2SAT 98; BMI 18.6
[2020-11-25 17:24] LABS: COVID-19 Test Negative (Negative)
--- NOTE | 2020-11-25 17:59 | ED.GENADULT ---
HPI - General Adult General Chief complaint: Upper Respiratory Symptoms Stated complaint: sore throat Time Seen by Provider: 11/25/20 16:48 History of Present Illness HPI narrative: Patient complains of sore throat for 3 weeks with some discomfort with swallowing and some pain in the back of his throat, he has no difficulty swallowing no difficulty breathing denies any swelling has not felt any lumps Related Data Previous Rx's Medication Instructions Recorded acetaminophen 500 mg tablet 1,000 mg PO QID PRN #30 tab 11/25/20 ibuprofen 600 mg tablet 600 mg PO Q6H PRN #20 tab 11/25/20 loratadine 10 mg tablet (Claritin) 10 mg PO DAILY PRN #10 tab 11/25/20 prednisone 20 mg tablet 60 mg PO DAILY 3 Days #9 tab 11/25/20 Allergies Allergy/AdvReac Type Severity Reaction Status Date / Time FRUIT Allergy Unknown HIVES, Uncoded 12/25/19 16:24 DIFFICULTY BREATHING PMFSH Past Medical History Medical History Anxiety Social History Social History Alcohol intake: current Alcohol intake frequency: holidays/special occasions only Advance Directives: No Advance Directives Information Provided: No Physical Exam Vital Signs: Vital Signs: Last Vital Signs Temp 96.7 F L 11/25/20 16:32 Pulse 73 11/25/20 16:32 Resp 16 11/25/20 16:32 BP 118/72 11/25/20 16:32 Pulse Ox 98 11/25/20 16:32 Body Mass Index 18.6 Course Course Course Narrative: Patient with normal exam of the throat and neck is treated with a trial of steroids, antihistamine and Motrin and will follow with primary doctor for further evaluation and possible referral to a specialist if pain continues At this time is well-appearing and swallows easily and had a normal exam of the throat Medical Decision Making Lab Data Labs: Lab Results 11/25/20 11/25/20 Range/Units 16:59 16:59 COVID-19 (KHADAR) Negative (Negative) COVID-19 Clin Com See Note S. pyogenes GrpA LIANE Negative (Negative) Discharge Plan Discharge Clinical Impression: Pharyngitis Patient Disposition: Home, Self-Care Additional Instructions: Your strep test and COVID tests were negative Pain may be from a viral inflammation, it may be from allergies but we are not sure physical exam was normal If pain continues follow with primary doctor pain in some cases if need be will refer you to a specialist for further evaluation Return any time any changed or worse condition Prescriptions: New prednisone 20 mg tablet 60 mg PO DAILY 3 Days Qty: 9 RF: 0 ibuprofen 600 mg tablet 600 mg PO Q6H PRN (Reason: pain) Qty: 20 RF: 0 acetaminophen 500 mg tablet 1,000 mg PO QID PRN (Reason: pain) Qty: 30 RF: 0 loratadine [Claritin] 10 mg tablet 10 mg PO DAILY PRN (Reason: allergy symptoms) Qty: 10 RF: 0
[2020-11-25 18:15] LABS: IDNOW Serial# 9DD0AD1C; Strep A Nucleic Acid Negative (Negative)
[2020-11-25] MEDS: Ibuprofen 400 MG TABLET PO (18:47)
[2020-11-25] MEDS: predniSONE 20 MG TABLET 60 MG PO (18:47)
[2020-11-25] MEDS: Loratadine 10 MG TABLET PO (18:48)
== END 2020-11-25 18:53 | disposition home or self-care (01) ==
PROVIDERS: Physician Assistant Medical; Emergency Provider Internal Medicine; PCP Student in an Organized Health Care Education/Training Program
DX: J02.9 Acute pharyngitis, unspecified (principal); Z20.822 Contact with and (suspected) exposure to COVID-19
CPT/HCPCS: 36415; 87635; 87651; 99283; 99284

== ENCOUNTER 2020-11-29 21:00 | Emergency (ER) | payer MEDICAID, SELFPAY ==
[2020-11-29 21:33] VITALS: BP 129/78; PULSE 95; RESP 16; TEMP 36.5; O2SAT 98; BMI 18.7
--- NOTE | 2020-11-29 22:47 | ED_ITS ---
HPI - General Adult General Chief complaint: General Medical Stated complaint: sore throat Time Seen by Provider: 11/29/20 22:25 Source: patient Mode of arrival: ambulatory Limitations: no limitations History of Present Illness HPI narrative: Patient comes emergency room complaining of sore throat. Patient states that his throat hurts. Patient was seen here 4 days ago for the same complaint. Patient states his symptoms have not gotten worse. Patient denies any fever, no chills, no trouble swallowing, states swallowing food or drinks does not make the pain worse. Related Data Previous Rx's Medication Instructions Recorded acetaminophen 500 mg tablet 1,000 mg PO QID PRN #30 tab 11/25/20 ibuprofen 600 mg tablet 600 mg PO Q6H PRN #20 tab 11/25/20 loratadine 10 mg tablet (Claritin) 10 mg PO DAILY PRN #10 tab 11/25/20 prednisone 20 mg tablet 60 mg PO DAILY 3 Days #9 tab 11/25/20 Allergies Allergy/AdvReac Type Severity Reaction Status Date / Time FRUIT Allergy Unknown HIVES, Uncoded 12/25/19 16:24 DIFFICULTY BREATHING Review of Systems Review of Systems: Constitutional : No Weight loss, No Fever, No Chills, No Night Sweats, No Fatigue, No Malaise ENT/Mouth : No Hearing loss, No Ear Pain, No Nasal Congestion, No Sinus Pain, No Hoarseness, complaining of sore throat, No Rhinorrhea, No Swallowing Difficulty Eyes: No Eye Pain, No Swelling, No Redness, No Foreign Body, No Discharge, No Vision Changes Cardiovascular : No Chest Pain, No SOB, No Dyspnea on Exertion, No Orthopnea, No Edema, No Palpitations Respiratory : No Cough, No Sputum, No Wheezing, No Smoke Exposure, No Dyspnea Gastrointestinal : No Nausea, No Vomiting, No Diarrhea, No Constipation, No abdominal Pain, No Hematochezia, No Melena Genitourinary : no irregular bleeding, No Dysuria, No Urinary Frequency, No Hematuria, No Urinary Incontinence, No Urgency, No Flank Pain, No Urinary Flow Changes, No Hesitancy Musculoskeletal : No joint pain, No Myalgias, No Joint Swelling Skin : No Skin Lesions, No rash Neuro : No Weakness, No Numbness, No Paresthesias, No Loss of Consciousness, No Dizziness, No Headache Psych : No Anxiety/Panic, No Depression, No SI/HI/AH/VH, No Social Issues, Heme/Lymph: No Bruising, No Bleeding,No Lymphadenopathy Endocrine : No Polyuria, No Polydipsia, No Temperature Intolerance [facility] [place] Past Medical History Medical History Anxiety Social History Social History Alcohol intake: current Alcohol intake frequency: holidays/special occasions only Advance Directives: No Advance Directives Information Provided: No Physical Exam Vital Signs: Vital Signs: Last Vital Signs Temp 97.7 F 11/29/20 21:33 Pulse 95 11/29/20 21:33 Resp 16 11/29/20 21:33 BP 129/78 11/29/20 21:33 Pulse Ox 98 11/29/20 21:33 Body Mass Index 18.7 Const: Other: Appearance: Alert. Oriented X3. No acute distress. Eyes: Pupils equal, round and reactive to light. ENT: Pharynx normal. Neck: Normal inspection. Neck supple. No lymph nodes noted. No crepitus CVS: Normal heart rate and rhythm. Pulses normal. Normal S1 and S2 Respiratory: No respiratory distress. Breath sounds normal. No Wheezing. No rales Abdomen: Soft and nontender. No rigidity. No distention. good BS x4 Skin: Skin warm and dry. Normal skin color. Normal skin turgor. Extremities: No lower extremity edema. No lower extremity edema. No Lacerations. No Rash Neuro: Oriented X 3. No motor deficit. No sensory deficit. Moving all extermities. No slurred speech. Course Course Course Narrative: Patient tested negative again for strep throat and COVID. Patient was given 1 dose of p.o. Decadron and viscous lidocaine, patient states that he feels much better now. Patient eating and drinking within normal limits, states there is no pain, no nausea vomiting. I also discussed with the patient that if the symptoms persist, he needs to follow up with his PCP for possible ENT referral Medical Decision Making Lab Data Labs: Lab Results 11/29/20 11/29/20 Range/Units 22:55 22:55 COVID-19 (KHADAR) Negative (Negative) COVID-19 Clin Com See Note S. pyogenes GrpA LIANE Negative (Negative) Discharge Plan Discharge Clinical Impression: Acute viral pharyngitis Patient Disposition: Home, Self-Care Instructions: Pharyngitis (ED) Additional Instructions: Please follow-up with your primary care physician tomorrow. If you have any worsening or new symptoms, please return to the emergency room or call 911 Prescriptions: No Action prednisone 20 mg tablet 60 mg PO DAILY 3 Days Qty: 9 RF: 0 ibuprofen 600 mg tablet 600 mg PO Q6H PRN (Reason: pain) Qty: 20 RF: 0 acetaminophen 500 mg tablet 1,000 mg PO QID PRN (Reason: pain) Qty: 30 RF: 0 loratadine [Claritin] 10 mg tablet 10 mg PO DAILY PRN (Reason: allergy symptoms) Qty: 10 RF: 0
[2020-11-29] MEDS: dexAMETHasone sod phosphate 4 MG/ML VIAL 8 MG IVPUSH (23:00)
[2020-11-29] MEDS: Lidocaine HCl Viscous 2 % 15 ML SOLUTION MUCOUS MEM (23:00)
[2020-11-29 23:11] LABS: IDNOW Serial# 9DD0AD1C; Strep A Nucleic Acid Negative (Negative)
[2020-11-29 23:20] LABS: COVID-19 Test Negative (Negative)
== END 2020-11-30 00:11 | disposition home or self-care (01) ==
PROVIDERS: Emergency Provider Emergency Medicine; PCP Student in an Organized Health Care Education/Training Program
DX: J02.9 Acute pharyngitis, unspecified (principal); Z20.822 Contact with and (suspected) exposure to COVID-19; Z79.899 Other long term (current) drug therapy
CPT/HCPCS: 36415; 87635; 87651; 96374; 99283; 99284; J1100

== ENCOUNTER 2021-03-13 08:34 | Emergency (ER) | payer MEDICAID, SELFPAY ==
--- NOTE | 2021-03-13 | ECG_ITS ---
Test Reason : CHEST PAIN Blood Pressure : / mmHG Vent. Rate : 059 BPM Atrial Rate : 059 BPM P-R Int : 126 ms QRS Dur : 088 ms QT Int : 376 ms P-R-T Axes : 005 070 071 degrees QTc Int : 372 ms Sinus bradycardia with sinus arrhythmia Otherwise normal ECG When compared with ECG of 02-MAR-2020 18:09, No significant change was found Referred By: Generic ED Physician Electronically Signed By:ERROL BARRETT MD
--- NOTE | ~2021-03-13 | XR_ITS ---
EXAMINATION: XR CHEST CLINICAL INFORMATION: Chest pain COMPARISON: Chest 03/02/2020 TECHNIQUE: Frontal view of the chest was obtained. FINDINGS: The lungs are hyperinflated but clear of acute pneumonic process. The heart size and pulmonary vascularity is normal. No gross bony abnormality seen. XR/XR chest 1V IMPRESSION: Unremarkable chest examination.
[2021-03-13 08:37] VITALS: BP 113/68; PULSE 73; RESP 18; TEMP 36.1; O2SAT 98; BMI 19.4
--- NOTE | 2021-03-13 09:21 | ED.CHESTPAIN ---
HPI - Chest Pain General Chief Complaint: Chest Pain Stated Complaint: chest pain Time Seen by Provider: 03/13/21 09:00 Source: patient Mode of arrival: ambulatory Limitations: no limitations History of Present Illness HPI narrative: 30-year-old male came in for evaluation of left-sided chest pain. Pain started at 07:00 when patient woke up from sleep going to work, while patient was brushing his teeth started to have left-sided chest pain, no radiation, lasted for about 5 minutes, described as severe 10/10, pain is gone now, no relieving factor, no aggravating factor, no other associated symptoms, never had chest pain in the past. Patient works in the [employer] business get to travel on a daily basis. Decline lower extremity swelling or tenderness or pain, no difficulty breathing. No chest pain now. No family history of heart disease at young age, no sudden in the family. Related Data Previous Rx's Medication Instructions Recorded acetaminophen 500 mg tablet 1,000 mg PO QID PRN #30 tab 11/25/20 ibuprofen 600 mg tablet 600 mg PO Q6H PRN #20 tab 11/25/20 loratadine 10 mg tablet (Claritin) 10 mg PO DAILY PRN #10 tab 11/25/20 prednisone 20 mg tablet 60 mg PO DAILY 3 Days #9 tab 11/25/20 Allergies Allergy/AdvReac Type Severity Reaction Status Date / Time FRUIT Allergy Unknown HIVES, Uncoded 12/25/19 16:24 DIFFICULTY BREATHING Review of Systems Review of Systems: All other systems are reviewed and are negative Constitutional: Reports as per HPI and Reports no additional constitutional complaints Eyes: Reports as per HPI and Reports no additional eye complaints Reports system reviewed and no additional complaints, except as documented Cardiovascular: Reports as per HPI and Reports no additional cardiovascular complaints Respiratory: Reports as per HPI and Reports no additional respiratory complaints Gastrointestinal: Reports as per HPI and Reports no additional gastrointestinal complaints Genitourinary: Reports no additional female genitourinary complaints Musculoskeletal: Reports no additional musculoskeletal complaints Skin/Breast: Reports system reviewed and no additional complaints, except as docu Psychiatric: Reports no additional psychiatric complaints Endocrine: Reports no additional endocrine complaints Hematologic/Lymphatic: Reports no additional hematologic/lymphatic complaints Allergic/Immunologic: Reports no additional allergic/immunologic complaints Reports system reviewed and no additional complaints, except as documented and Reports Abnormal speech present [facility] Past Medical History Medical History Anxiety Social History Social History Alcohol intake: current Alcohol intake frequency: does not drink Patient Tobacco Use Status: Current someday Tobacco user Use of substances other than those prescribed or required for medical reasons: No Advance Directives: No Advance Directives Information Provided: Yes Physical Exam Vital Signs: Vital Signs: Last Vital Signs Temp 97 F 03/13/21 08:37 Pulse 60 03/13/21 09:48 Resp 16 03/13/21 09:48 BP 106/67 03/13/21 09:48 Pulse Ox 98 03/13/21 09:48 BMI result Body Mass Index 19.4 Vital signs have been reviewed as appeared to be correct. Blood pressure normal. Heart rate normal. Respiration rate normal. Temperature normal. Oxygen saturation normal. Appearance: Alert. Oriented X3. No acute distress. Head: Normal external exam. Normocephalic. Atraumatic. No Stiles signs noted. No raccoon eyes noted Eyes: PERRLA. EOMI. Conjunctiva and sclera normal. Eyelids normal. ENT: TM's Normal. Pharynx normal. Uvula midline. Moist mucous membranes. No trismus noted. No drooling noted. No muffled voice noted. Neck: Normal inspection. Neck supple. FROM. No adenopathy. Thyroid Normal. No meningeal signs. No neck mass noted. CVS: Normal heart rate and rhythm. Heart sound normal. No murmurs noted. Pulses normal throughout. Respiratory: No respiratory distress. Painless inspiration. Breath sounds normal. No wheezes/rales/rhonchi noted. Chest nontender. No accessory muscle usage noted or decreased air movement noted. Abdomen: Soft and nontender. Bowel sounds normal in all 4 quadrants. No distention noted. No organomegaly noted. No visible injury noted. Back: No CVA tenderness. Full range of motion noted. Skin: Skin warm and dry. Normal skin color. Normal skin turgor. No rashes/lesions/lacerations noted. Extremities: No lower extremity edema. Extremities exhibit normal range of motion. Extremities nontender. Neuro: Oriented X 3. Cranial nerve exam: II-XII are grossly intact No motor deficit. No sensory deficit. Reflexes normal. Course Course Course Narrative: Assessment and plan. 30-year-old male came in for evaluation of left-sided chest pain started 06:00 o'clock in the morning, patient has low risk factor for coronary artery disease, EKG is unremarkable, HEART score is 0, negative troponin x2 with 3 hours apart, patient with his shop require short distant travel. No lower extremity swelling or tenderness, D-dimer is negative. Patient is chest pain-free. Will discharge with assurance. Reevaluation(s) Reevaluation #1: Patient had chest pain while awaiting in the emergency department repeat EKG while having chest pain is unchanged, patient has reproducible tenderness on the left chest wall. Time: 13:19 MDM - Chest Pain Lab Data Attestation: I reviewed the patient's lab results. Result diagrams: 03/13/21 09:43 03/13/21 09:43 Labs: Lab Results 03/13/21 03/13/21 03/13/21 Range/Units 09:43 09:43 09:43 WBC 4.9 (4.8-10.8) X10*3/uL RBC 4.00 L (4.60-5.80) X10*6/uL Hgb 12.7 L (14.0-18.0) g/dl Hct 37.7 L (42.0-52.0) % MCV 94.3 (80.0-98.0) fL MCH 31.8 (27.0-33.0) pg MCHC 33.7 (31.0-36.0) g/dl RDW 11.4 (11.0-16.0) % Plt Count 202 (160-400) X10*3/uL MPV 9.9 (9.4-12.4) fL Immature Gran % (Auto) 0.2 (0.0-0.4) % Neut % (Auto) 55.8 (45-73) % Lymph % (Auto) 28.8 (20-40) % [place] % (Auto) 11.9 H (2-11) % Eos % (Auto) 2.5 (0-4) % Baso % (Auto) 0.8 (0-2) % Lymph # (Auto) 1.4 (1.2-4.9) X10*3/uL [place] # (Auto) 0.6 (0.1-1.2) X10*3/uL Eos # (Auto) 0.1 (0.0-0.4) X10*3/uL Baso # (Auto) 0.0 (0.0-0.2) X10*3/uL Abs Immat Gran (auto) 0.01 (0.00-0.03) X10*3/uL Absolute Neuts (auto) 2.7 (2.0-8.3) x10*3/uL Absolute Nucleated RBC 0.000 (0.0-0.012) X10*3/uL Nucleated RBC % (auto) 0.0 (0.0-0.2) /100WBC D-Dimer High Sensitivty < 150 NG/ML Sodium 138 (135-145) mmol/L Potassium 4.0 (3.3-5.1) mmol/L Chloride 103 (96-108) mmol/L Carbon Dioxide 28 (22-29) mmol/L Anion Gap 11 L (12-20) BUN 14 (9-16) mg/dL Creatinine 0.83 (0.5-1.4) mg/dL Estim Creat Clear Calc 105.8 Estimated GFR > 60 Random Glucose 131 H (60-115) mg/dL Calcium 8.8 (8.4-10.2) mg/dL Total Bilirubin 0.6 (0.0-1.0) mg/dL Direct Bilirubin 0.3 (0.0-0.5) mg/dL AST 17 (5-37) U/L ALT 12 (0-40) U/L Alkaline Phosphatase 66 (39-117) U/L Troponin I High Sens (<3.5-35.0) ng/L Total Protein 6.6 (6.5-8.0) g/dL Albumin 4.1 (3.5-5.0) g/dL Lipase 33 (8-78) U/L 03/13/21 03/13/21 Range/Units 09:43 12:47 WBC (4.8-10.8) X10*3/uL RBC (4.60-5.80) X10*6/uL Hgb (14.0-18.0) g/dl Hct (42.0-52.0) % MCV (80.0-98.0) fL MCH (27.0-33.0) pg MCHC (31.0-36.0) g/dl RDW (11.0-16.0) % Plt Count (160-400) X10*3/uL MPV (9.4-12.4) fL Immature Gran % (Auto) (0.0-0.4) % Neut % (Auto) (45-73) % Lymph % (Auto) (20-40) % [place] % (Auto) (2-11) % Eos % (Auto) (0-4) % Baso % (Auto) (0-2) % Lymph # (Auto) (1.2-4.9) X10*3/uL [place] # (Auto) (0.1-1.2) X10*3/uL Eos # (Auto) (0.0-0.4) X10*3/uL Baso # (Auto) (0.0-0.2) X10*3/uL Abs Immat Gran (auto) (0.00-0.03) X10*3/uL Absolute Neuts (auto) (2.0-8.3) x10*3/uL Absolute Nucleated RBC (0.0-0.012) X10*3/uL Nucleated RBC % (auto) (0.0-0.2) /100WBC D-Dimer High Sensitivty NG/ML Sodium (135-145) mmol/L Potassium (3.3-5.1) mmol/L Chloride (96-108) mmol/L Carbon Dioxide (22-29) mmol/L Anion Gap (12-20) BUN (9-16) mg/dL Creatinine (0.5-1.4) mg/dL Estim Creat Clear Calc Estimated GFR Random Glucose (60-115) mg/dL Calcium (8.4-10.2) mg/dL Total Bilirubin (0.0-1.0) mg/dL Direct Bilirubin (0.0-0.5) mg/dL AST (5-37) U/L ALT (0-40) U/L Alkaline Phosphatase (39-117) U/L Troponin I High Sens < 3.5 < 3.5 (<3.5-35.0) ng/L Total Protein (6.5-8.0) g/dL Albumin (3.5-5.0) g/dL Lipase (8-78) U/L Imaging Data Chest x-ray: Radiologist's impression: Unremarkable chest examination. ECG Data ECG #1: Attestation: I personally reviewed and interpreted this ECG as follows: Interpretation: Sinus bradycardia at 59 beats per minutes, normal axis deviation, normal intervals. Discharge Plan Discharge Clinical Impression: Chest pain Patient Disposition: Home, Self-Care Instructions: Chest Pain (ED) Prescriptions: No Action prednisone 20 mg tablet 60 mg PO DAILY 3 Days Qty: 9 RF: 0 ibuprofen 600 mg tablet 600 mg PO Q6H PRN (Reason: pain) Qty: 20 RF: 0 acetaminophen 500 mg tablet 1,000 mg PO QID PRN (Reason: pain) Qty: 30 RF: 0 loratadine [Claritin] 10 mg tablet 10 mg PO DAILY PRN (Reason: allergy symptoms) Qty: 10 RF: 0 Referrals: Physician,Unknown J [Primary Care Provider] - 2 days Stand Alone Forms: Work/School Release
[2021-03-13 09:48] VITALS: BP 106/67; PULSE 60; RESP 16; O2SAT 98
--- NOTE | 2021-03-13 09:49 | PC.NURSE ---
IV ricki and labs sent. Pt NSR on tele, peaked on t waves on tele. Skin pwd.
[2021-03-13 09:50] LABS: MANUAL DIFF FLAG NO
[2021-03-13 09:57] LABS: Basophils Percent Auto 0.8 % (0-2); Eosinophils Absolute Auto 0.1 X10*3/uL (0.0-0.4); Eosinophils Percent Auto 2.5 % (0-4); Hematocrit 37.7 % (42.0-52.0); Hemoglobin 12.7 g/dl (14.0-18.0); Imm Gran Abs Auto 0.01 X10*3/uL (0.00-0.03); Imm Gran Pct Auto 0.2 % (0.0-0.4); Lymphocytes Absolute Auto 1.4 X10*3/uL (1.2-4.9); Lymphocytes Percent Auto 28.8 % (20-40); Mean Corpuscular HGB Conc 33.7 g/dl (31.0-36.0); Mean Corpuscular Hemoglobin 31.8 pg (27.0-33.0); Mean Corpuscular Volume 94.3 fL (80.0-98.0); Mean Platelet Volume 9.9 fL (9.4-12.4); Monocytes Absolute Auto 0.6 X10*3/uL (0.1-1.2); Monocytes Percent Auto 11.9 % (2-11); Neutrophils Absolute Auto 2.7 x10*3/uL (2.0-8.3); Neutrophils Percent Auto 55.8 % (45-73); Platelet Count 202 X10*3/uL (160-400); Red Cell Distribution Width 11.4 % (11.0-16.0); White Blood Count 4.9 X10*3/uL (4.8-10.8)
[2021-03-13 10:00] LABS: D Dimer High Sensitivity < 150 NG/ML
[2021-03-13 10:09] LABS: Alanine Aminotransferase 12 U/L (0-40); Albumin Level 4.1 g/dL (3.5-5.0); Alkaline Phosphatase 66 U/L (39-117); Anion Gap 11 (12-20); Aspartate Amino Transferase 17 U/L (5-37); Bilirubin Direct 0.3 mg/dL (0.0-0.5); Bilirubin Total 0.6 mg/dL (0.0-1.0); Blood Urea Nitrogen 14 mg/dL (9-16); Calcium 8.8 mg/dL (8.4-10.2); Carbon Dioxide 28 mmol/L (22-29); Chloride 103 mmol/L (96-108); Creatinine Clr Calc Pharmacy 105.8; Estimated Glomerular Filt Rate > 60; Glucose Random 131 mg/dL (60-115); Lipase 33 U/L (8-78); Sodium 138 mmol/L (135-145); Total Protein 6.6 g/dL (6.5-8.0)
[2021-03-13 10:13] LABS: Troponin-I High Sensitivity < 3.5 ng/L (<3.5-35.0)
--- NOTE | 2021-03-13 12:10 | ECG_ITS ---
Test Reason : REPEAT Blood Pressure : / mmHG Vent. Rate : 060 BPM Atrial Rate : 060 BPM P-R Int : 142 ms QRS Dur : 088 ms QT Int : 376 ms P-R-T Axes : 063 073 070 degrees QTc Int : 376 ms Normal sinus rhythm with sinus arrhythmia Normal ECG When compared with ECG of 13-MAR-2021 08:50, No significant change was found Referred By: Jerry Cottrell Electronically Signed By:ERROL BARRETT MD
[2021-03-13] MEDS: Acetaminophen 325 MG TABLET 650 MG PO (12:35)
[2021-03-13 13:11] LABS: Troponin-I High Sensitivity < 3.5 ng/L (<3.5-35.0)
== END 2021-03-13 13:52 | disposition home or self-care (01) ==
PROVIDERS: Emergency Provider Emergency Medicine
DX: R07.9 Chest pain, unspecified (principal)
CPT/HCPCS: 36415; 71045; 80048; 80076; 83690; 84484; 85025; 85379; 93005; 99283; 99285

== ENCOUNTER 2021-05-10 15:52 | Outpatient (REF) | payer MEDICAID, SELFPAY ==
--- NOTE | ~2021-05-10 | XR_ITS ---
EXAMINATION: XR CHEST CLINICAL INFORMATION: Chest pain COMPARISON: None TECHNIQUE: 2 views of the chest were obtained. FINDINGS: No significant abnormality is noted involving the heart, lungs, mediastinum, bony thorax or soft tissues. XR/XR chest 2V IMPRESSION: Unremarkable chest examination.
== END 2021-05-10 15:53 | disposition home or self-care (01) ==
LOC: HO.XRAY 15:52
PROVIDERS: Absent Provider Student in an Organized Health Care Education/Training Program; PCP Student in an Organized Health Care Education/Training Program; Visit Provider Emergency Medicine
DX: R07.9 Chest pain, unspecified (principal)
CPT/HCPCS: 71046

== ENCOUNTER → 2021-05-14 10:46 | Outpatient (REF) | payer MEDICAID, SELFPAY ==
--- NOTE | 2021-05-14 10:52 | ECG_ITS ---
Test Reason : CHEST PAIN Blood Pressure : / mmHG Vent. Rate : 062 BPM Atrial Rate : 062 BPM P-R Int : 122 ms QRS Dur : 084 ms QT Int : 358 ms P-R-T Axes : 029 069 069 degrees QTc Int : 363 ms Normal sinus rhythm Normal ECG When compared with ECG of 13-MAR-2021 12:14, No significant change was found Referred By: Juan Antonio Salazar Electronically Signed By:ERROL BARRETT MD
== END ==
LOC: HO.CARD 10:46
PROVIDERS: Absent Provider Student in an Organized Health Care Education/Training Program; PCP Student in an Organized Health Care Education/Training Program; Visit Provider Emergency Medicine
DX: R07.9 Chest pain, unspecified (principal)
CPT/HCPCS: 93005

== ENCOUNTER 2021-05-20 16:26 | Outpatient (REF) | payer MEDICAID, SELFPAY ==
--- NOTE | ~2021-05-20 | XR_ITS ---
EXAMINATION: XR LUMBOSACRAL SPINE CLINICAL INFORMATION: Pain. COMPARISON: 06/25/2020 and 12/25/2019. TECHNIQUE: Three views of the lumbosacral spine. FINDINGS: There are 5 nonrib-bearing lumbar vertebra. The bony texture and alignment is satisfactory. No acute fracture, spondylolisthesis, or spondylolysis is identified. There are some mildly increased sclerosis seen about the L5-S1 facet joints which may be related to bilateral facet arthropathy. Sacroiliac joints unremarkable. XR/XR lumbar spine 2-3V IMPRESSION: Question some degree of facet arthropathy bilaterally at the L5-S1 level.
--- NOTE | ~2021-05-20 | XR_ITS ---
EXAMINATION: XR HIP, LEFT CLINICAL INFORMATION: Bursitis COMPARISON: None TECHNIQUE: Two views of the left hip. FINDINGS: Bones and soft tissues are normal. No fracture. Alignment is anatomic. Hip joint space is maintained. XR/XR hip LT min 2V IMPRESSION: No significant left hip abnormality appreciated.
== END 2021-05-20 16:27 | disposition home or self-care (01) ==
LOC: HO.XRAY 16:26
PROVIDERS: Absent Provider Student in an Organized Health Care Education/Training Program; PCP Student in an Organized Health Care Education/Training Program; Visit Provider Nurse Practitioner Family
DX: M70.62 Trochanteric bursitis, left hip (principal)
CPT/HCPCS: 72100; 73502

== ENCOUNTER 2024-07-16 04:28 | Emergency (ER) | payer OTHER, SELFPAY ==
[2024-07-16 04:40] VITALS: BP 126/75; PULSE 80; RESP 18; TEMP 36.4; O2SAT 99; BMI 19.7
[2024-07-16 04:49] LABS: Basophils Percent Auto 0.6 % (0-2); Eosinophils Absolute Auto 0.1 X10*3/uL (0.0-0.4); Eosinophils Percent Auto 1.8 % (0-4); Hematocrit 39.1 % (42.0-52.0); Hemoglobin 13.5 g/dl (14.0-18.0); Imm Gran Abs Auto 0.02 X10*3/uL (0.00-0.03); Imm Gran Pct Auto 0.3 % (0.0-0.4); Lymphocytes Absolute Auto 2.9 X10*3/uL (1.2-4.9); Lymphocytes Percent Auto 42.9 % (20-40); MANUAL DIFF FLAG NO; Mean Corpuscular HGB Conc 34.5 g/dl (31.0-36.0); Mean Corpuscular Hemoglobin 32.1 pg (27.0-33.0); Mean Corpuscular Volume 92.9 fL (80.0-98.0); Monocytes Absolute Auto 0.7 X10*3/uL (0.1-1.2); Monocytes Percent Auto 9.8 % (2-11); Neutrophils Percent Auto 44.6 % (45-73); Platelet Count 242 X10*3/uL (160-400); Red Blood Count 4.21 X10*6/uL (4.60-5.80); Red Cell Distribution Width 11.9 % (11.0-16.0); White Blood Count 6.7 X10*3/uL (4.8-10.8)
--- NOTE | 2024-07-16 04:50 | ED_ITS ---
HPI - Abdominal Pain General Chief Complaint: Abdominal Pain Stated Complaint: abd pain Time Seen by Provider: 07/16/24 04:50 Source: patient Mode of arrival: ambulatory Limitations: no limitations History of Present Illness ED Provider: DR. Cottrell HPI narrative: 34-year-old male came in for evaluation of lower abdominal pain the day with sharp lower abdominal pain the pain turn into burning sensation in the lower abdomen that is subsided yesterday then woke up this morning with similar pain started as sharp pain in both sides of the abdomen now feels like burning sensation on both sides of the abdomen pain is progressively improving, no nausea, no vomiting, no fever, no diarrhea, no dysuria, no frequency urination. No history of intra-abdominal surgery in the past. Related Data Previous Rx's ?Medication ?Instructions ?Recorded acetaminophen 500 mg tablet 1,000 mg (2 x 500 mg) PO QID PRN 11/25/20 pain #30 tabs ibuprofen 600 mg tablet 600 mg PO Q6H PRN pain #20 tabs 11/25/20 loratadine 10 mg tablet (Claritin) 10 mg PO DAILY PRN allergy 11/25/20 symptoms #10 tabs prednisone 20 mg tablet 60 mg (3 x 20 mg) PO DAILY 3 days 11/25/20 #9 tabs Allergies Allergy/AdvReac Type Severity Reaction Status Date / Time FRUIT Allergy Unknown HIVES, Uncoded 07/16/24 04:42 DIFFICULTY BREATHING Review of Systems Review of Systems All other systems are reviewed and are negative Constitutional: Reports as per HPI and Reports no additional constitutional complaints Eyes: Reports as per HPI and Reports no additional eye complaints Reports system reviewed and no additional complaints, except as documented Cardiovascular: Reports as per HPI and Reports no additional cardiovascular complaints Respiratory: Reports as per HPI and Reports no additional respiratory complaints Gastrointestinal: Reports as per HPI and Reports no additional gastrointestinal complaints Genitourinary: Reports no additional female genitourinary complaints Musculoskeletal: Reports no additional musculoskeletal complaints Skin/Breast: Reports system reviewed and no additional complaints, except as docu Psychiatric: Reports no additional psychiatric complaints Endocrine: Reports no additional endocrine complaints Hematologic/Lymphatic: Reports no additional hematologic/lymphatic complaints Allergic/Immunologic: Reports no additional allergic/immunologic complaints Reports system reviewed and no additional complaints, except as documented and Reports Abnormal speech present PMFSH Past Medical History Medical History Anxiety Social History Social History Alcohol intake: current Alcohol intake frequency: does not drink Patient Tobacco Use Status: Current someday Tobacco user Smoked in Last 30 Days: Yes Use of substances other than those prescribed or required for medical reasons: No Do you have a plan to hurt others: No Plan Physical Exam ED Vital Signs: Vital Signs - 24 hr 07/16/24 04:40 Temperature 97.6 F Pulse Rate 80 Respiratory Rate 18 Blood Pressure 126/75 Pulse Oximetry 99 Oxygen Delivery Method Room Air BMI result Body Mass Index 19.7 Vital signs have been reviewed and appear to be correct. Blood pressure elevated. Heart rate normal. Respiratory rate normal. Temperature normal. Oxygen saturation normal. Appearance: Alert. Oriented X3. No acute distress. Head: Normal external exam. Normocephalic. Atraumatic. No Stiles signs noted. No raccoon eyes noted Eyes: PERRLA. EOMI. Conjunctiva and sclera normal. Eyelids normal. ENT: TM's Normal. Pharynx normal. Uvula midline. Moist mucous membranes. No trismus noted. No drooling noted. No muffled voice noted. Neck: Normal inspection. Neck supple. FROM. No adenopathy. Thyroid Normal. No meningeal signs. No neck mass noted. CVS: Normal heart rate and rhythm. Heart sound normal. No murmurs noted. Pulses normal throughout. Respiratory: No respiratory distress. Painless inspiration. Breath sounds normal. No wheezes/rales/rhonchi noted. Chest nontender. No accessory muscle usage noted or decreased air movement noted. Abdomen: Soft and nontender. Bowel sounds normal in all 4 quadrants. No distention noted. No organomegaly noted. No visible injury noted. Back: No CVA tenderness. Full range of motion noted. Skin: Skin warm and dry. Normal skin color. Normal skin turgor. No rashes/lesions/lacerations noted. Extremities: No lower extremity edema. Extremities exhibit normal range of motion. Extremities nontender. Neuro: Oriented X 3. Cranial nerve exam: II-XII are grossly intact No motor deficit. No sensory deficit. Reflexes normal. Course Reevaluation(s) Reevaluation #1: Feels better, able to tolerate p.o. intake, repeat abdominal exam shows no tenderness, no rebound tenderness. Labs were unremarkable. Time: 07:00 Medical Decision Making Differential Diagnosis Differential Diagnoses: The differential diagnosis associated with the presentation includes (Gastritis, gastroenteritis, UTI, pancreatitis, colitis, acute appendicitis rubs, electrolyte derangement, severe anemia.) Admission/Observation Consideration of admission/observation: Escalation of care including admission/observation considered Lab Data MDM Lab Attestation statement: I reviewed the patient's lab results. 07/16/24 04:40 07/16/24 04:40 Labs: Lab Results 07/16/24 07/16/24 Range/Units 04:40 05:46 WBC 6.7 (4.8-10.8) X10*3/uL RBC 4.21 L (4.60-5.80) X10*6/uL Hgb 13.5 L (14.0-18.0) g/dl Hct 39.1 L (42.0-52.0) % MCV 92.9 (80.0-98.0) fL MCH 32.1 (27.0-33.0) pg MCHC 34.5 (31.0-36.0) g/dl RDW 11.9 (11.0-16.0) % Plt Count 242 (160-400) X10*3/uL MPV 9.0 L (9.4-12.4) fL Immature Gran % (Auto) 0.3 (0.0-0.4) % Neut % (Auto) 44.6 L (45-73) % Lymph % (Auto) 42.9 H (20-40) % [place] % (Auto) 9.8 (2-11) % Eos % (Auto) 1.8 (0-4) % Baso % (Auto) 0.6 (0-2) % Lymph # (Auto) 2.9 (1.2-4.9) X10*3/uL [place] # (Auto) 0.7 (0.1-1.2) X10*3/uL Eos # (Auto) 0.1 (0.0-0.4) X10*3/uL Baso # (Auto) 0.0 (0.0-0.2) X10*3/uL Abs Immat Gran (auto) 0.02 (0.00-0.03) X10*3/uL Absolute Neuts (auto) 3.0 (2.0-8.3) x10*3/uL Absolute Nucleated RBC 0.000 (0.0-0.012) X10*3/uL Nucleated RBC % (auto) 0.0 (0.0-0.2) /100WBC Sodium 140 (135-145) mmol/L Potassium 3.4 (3.3-5.1) mmol/L Chloride 107 (96-108) mmol/L Carbon Dioxide 23 (22-29) mmol/L Anion Gap 13 (12-20) BUN 9 (9-16) mg/dL Creatinine 0.88 (0.5-1.4) mg/dL Estim Creat Clear Calc 97.2 Estimated GFR > 60 Random Glucose 134 H (60-115) mg/dL Calcium 8.6 (8.4-10.2) mg/dL Total Bilirubin 0.2 (0.0-1.0) mg/dL AST 22 (5-37) U/L ALT 12 (0-40) U/L Alkaline Phosphatase 83 (39-117) U/L Total Protein 7.4 (6.5-8.0) g/dL Albumin 4.4 (3.5-5.0) g/dL Lipase 20 (8-78) U/L Urine Color Dark Yellow Urine Appearance Clear Urine pH 5.5 (5.0-9.0) Ur Specific [place] 1.025 (1.005-1.025) Urine Protein Trace (Neg-Trace) mg/dL Urine Glucose (UA) Negative (Negative) mg/dL Urine Ketones Trace (Negative) mg/dL Urine Blood Negative (Negative) Urine Nitrite Negative (Negative) Ur Leukocyte Esterase Negative (Negative) Discharge Plan Discharge Clinical Impression: Abdominal pain Patient Disposition: Home, Self-Care Instructions: Abdominal Pain (ED) Prescriptions: No Action prednisone 20 mg tablet 60 mg PO DAILY 3 Days Qty: 9 0RF ibuprofen 600 mg tablet 600 mg PO Q6H PRN (Reason: pain) Qty: 20 0RF acetaminophen 500 mg tablet 1,000 mg PO QID PRN (Reason: pain) Qty: 30 0RF loratadine [Claritin] 10 mg tablet 10 mg PO DAILY PRN (Reason: allergy symptoms) Qty: 10 0RF Print Language: [place]
[2024-07-16 05:09] LABS: Alanine Aminotransferase 12 U/L (0-40); Albumin Level 4.4 g/dL (3.5-5.0); Anion Gap 13 (12-20); Aspartate Amino Transferase 22 U/L (5-37); Bilirubin Total 0.2 mg/dL (0.0-1.0); Blood Urea Nitrogen 9 mg/dL (9-16); Calcium 8.6 mg/dL (8.4-10.2); Carbon Dioxide 23 mmol/L (22-29); Chloride 107 mmol/L (96-108); Creatinine Clr Calc Pharmacy 97.2; Estimated Glomerular Filt Rate > 60; Glucose Random 134 mg/dL (60-115); Lipase 20 U/L (8-78); Potassium 3.4 mmol/L (3.3-5.1); Sodium 140 mmol/L (135-145); Total Protein 7.4 g/dL (6.5-8.0)
[2024-07-16 05:15] LABS: Alkaline Phosphatase 83 U/L (39-117)
[2024-07-16 05:54] LABS: Appearance Urine Clear; Color Urine Dark Yellow; Glucose Urine UA Negative (Negative); Leukocyte Esterase Urine Negative (Negative); Nitrite Urine Negative (Negative); PH 5.5 (5.0-9.0); Specific Gravity - Urine 1.025 (1.005-1.025); Urine Blood Negative (Negative); Urine Ketones Trace mg/dL (Negative); Urine Protein Trace mg/dL (Neg-Trace)
[2024-07-16 06:23] VITALS: BP 121/72; PULSE 69; RESP 14; TEMP 36.4; O2SAT 97
[2024-07-16 06:24] VITALS: BP 121/72; PULSE 69; RESP 14; TEMP 36.4; O2SAT 97
== END 2024-07-16 06:24 | disposition home or self-care (01) ==
PROVIDERS: Emergency Provider Emergency Medicine
DX: R10.30 Lower abdominal pain, unspecified (principal); F17.210 Nicotine dependence, cigarettes, uncomplicated; Z79.899 Other long term (current) drug therapy
CPT/HCPCS: 36415; 80053; 81003; 83690; 85025; 99283; 99284